=== PATIENT | female | born 1960 | race Caucasian/White ===

== ENCOUNTER 2022-07-03 15:45 | Emergency (ER) | payer OTHER ==
[2022-07-03] MEDS ORDERED: Ketorolac 60 MG/2 ML SDV IM ONE (16:04)
[2022-07-03] MEDS: Ketorolac 30 MG/ML SDV ONE ×2 (16:33→16:35)
[2022-07-03 16:59] VITALS: BP 153/91; PULSE 62
== END 2022-07-03 16:40 | disposition home or self-care (01) ==
LOC: LB.ED 15:45
DX: M25.512 Pain in left shoulder (principal); W00.0XXA Fall on same level due to ice and snow, initial encounter
CPT/HCPCS: 96372; 99282; J1885